=== PATIENT | female | born 1995 | race Caucasian/White ===

== ENCOUNTER 2017-11-05 05:42 | Inpatient (IN) ==
--- OUTSIDE RECORDS SUMMARY | 2017-11-05 05:51 | External Medical Summary | Referral Summary ---
:1995 Author Organization [facility] Address [address] [place] [address] Care Team Providers Name Role Phone [facility] Primary Care Physician Unavailable Encounter [facility] [id number] Date(s): 10/31/16 - 10/31/16 [facility] [address] [place] [address] - us Discharge Diagnosis: Left knee pain Discharge Disposition: 01-Home or Self Care Attending Physician: Rebekah De La Cruz Attending Physician: Provider, Immediate Care Admitting Physician: Provider, Immediate Care Vital Signs Most recent to oldest [Reference Range]: 1 Temperature Oral [35.8-37.3 degC] 36.7 degC (10/31/16 11:29 AM) Peripheral Pulse Rate [60-100 bpm] 89 bpm (10/31/16 11:29 AM) Blood Pressure [90-140/60-90 mmHg] 108/70 mmHg (10/31/16 11:29 AM) SpO2 97 % (10/31/16 11:29 AM) Problem List Condition Effective Dates Status Health Status Informant Acute pain(Confirmed) Active At risk for injury(Confirmed)1 Active At risk of pressure Active sore(Confirmed) Hypoglycemia(Confirmed) Active patient (Confirmed) 03/08/15 - 12/07/15 Resolved (Confirmed) 06/15/14 - 2014 Resolved Severe preeclampsia(Confirmed) Active Tobacco user(Confirmed) Active patient Vaginal delivery(Confirmed) Active 1Problem added automatically by system based on initiation of Risk for Injury Plan of Care Allergies, Adverse Reactions, Alerts No Known Allergies Medications Colace 100 mg oral capsule 100 mg 1 caps, Oral, Daily, as needed for constipation, # 30 caps, 5 Refill(s) Start Date: 12/09/15 Status: Orderedferrous sulfate 325 mg (65 mg elemental iron) oral tablet 325 mg 1 tabs, Oral, Daily, # 30 tabs, 5 Refill(s) Start Date: 12/09/15 Status: Orderedibuprofen 800 mg oral tablet 800 mg 1 tabs, Oral, q8hr, as needed for pain, # 30 tabs, 0 Refill(s) Start Date: 12/09/15 Status: OrderedPrenatal Multivitamins Oral, Daily, 0 Refill(s) Start Date: 05/11/15 Status: OrderedtraMADol 50 mg oral tablet 50 mg 1 tabs, Oral, q12hr, as needed for pain, X 3 days, # 6 tabs, 0 Refill(s) Start Date: 10/31/16 Stop Date: 11/03/16 Status: Ordered Results No data available for this section Immunizations No data available for this section Procedures Procedure Date Related Diagnosis Body Site Appendectomy Social History Social History Type Response Smoking Status Current every day smoker Assessment and Plan Extracted from: Title: Office Visit Note Author: Rebekah De La Cruz Date: 10/31/16 Assessment/Plan 1.Left knee pain Discussed use of therapeutic techniques: PRICEMM therapy (protection, relative rest, ice, compression, elevation, medications, modalities) for symptomatic relief. She needs to establish with PCP f or further work up. Instructed patient on medication, use, common side effects , and administration. Discussed proper OTC medication, including Tylenol or ibuprofen, for symptomatic relief. Instructed pa tient if symptoms worsen or new symptoms arise to seek medical attention here or at the ER. If no improvement of symptoms follow up with PCP in 2-3 days. Patient voiced understanding and agreed with hiwot atment plan. Patient dismissed in stable condition. Ordered: Office Visit Level 3 Est [id number]
[2017-11-05] MEDS ORDERED: MAG-AL + SIM ORAL LIQUID 30ml PO PRN ×2 (05:56→14:16)
[2017-11-05] MEDS ORDERED: LR 1,000 ML IV PRN (05:56)
[2017-11-05] MEDS ORDERED: METHYLERGONOVINE 0.2 MG/ML INJECTION IM PRN (05:56)
[2017-11-05] MEDS ORDERED: ACETAMINOPHEN 500 MG TABLET PO PRN ×2 (05:56→14:16)
[2017-11-05] MEDS ORDERED: OXYTOCIN DRIP 30 UNIT/500 ML ML IV PRN (05:56)
[2017-11-05] MEDS ORDERED: LIDOCAINE 1% (10mg/ml) 2mL INJ PF SDV ID PRN (05:56)
[2017-11-05] MEDS ORDERED: CARBOPROST 250 MCG/ML INJECTION IM PRN (05:56)
[2017-11-05] MEDS ORDERED: CALCIUM CARBONATE Chewable 500mg TABLET PO PRN ×2 (05:56→14:16)
[2017-11-05] MEDS: D5LR 1,000 ML IV PRN ×2 (06:18→06:48)
[2017-11-05 06:35] VITALS: O2SAT 98
[2017-11-05 06:36] VITALS: BMI 43.7
[2017-11-05] MEDS ORDERED: AMPICILLIN 2 GM in NS 100 ML IV ONE (07:00)
--- NOTE | 2017-11-05 07:45 | Anesthesia Preoperative Report ---
Anesthesia Epidural/Spinal Rec - Date and Time Date: 11/05/17 Procedure: Labor Epidural Plan: Epidural - Vital Signs Vital Signs: Temperature 97.5 F 11/05/17 06:27 Pulse Rate 82 11/05/17 06:27 Respiratory Rate 18 11/05/17 06:27 Blood Pressure 102/66 11/05/17 06:27 Pulse Oximetry 98 11/05/17 06:27 NPO since: 0545 /Para: P:1 Heart Rate: 150 Height and Weight: 5' 9" 296 lbs - Medictaions & Allergies Inpatient Medications: Current Medications Acetaminophen (Tylenol) 500 - 1,000 mg PO Q4H PRN PRN Reason: Pain Al Hydroxide/Mg Hydroxide (Maalox Plus) 30 ml PO Q3H PRN PRN Reason: Indigestion Calcium Carbonate (Tums) 500 - 1,000 mg PO Q2H PRN PRN Reason: Indigestion Carboprost Tromethamine (Hemabate) 250 mcg IM O PRN PRN Reason: .Downtime Ampicillin Sodium 1 gm/ Sodium (Chloride) 100 mls @ 200 mls/hr IV Q4H ALPA Dextrose/Lactated Ringer's (Dextrose 5%-Lactated Ringers) 1,000 mls @ 125 mls/ hr IV .Q8H PRN PRN Reason: Labor Last Admin: 11/05/17 06:48 Dose: 125 mls/hr Lactated Ringer's (Lactated Ringers) 1,000 mls @ 999 mls/hr IV .Q1H1M PRN Oxytocin (Pitocin Drip) 30 unit in 500 mls @ 2 mls/hr IV .Q24H PRN; Protocol PRN Reason: Induction/Augmentation Last Admin: 11/05/17 06:48 Dose: 2 mls/hr Lidocaine HCl (Xylocaine-Mpf 1% Vial) 0.2 mg ID O PRN PRN Reason: IV Start Methylergonovine Maleate (Methergine) 0.2 mg IM O PRN Misoprostol (Cytotec) 800 mcg VA ONCE PRN Allergies/Adverse Reactions: Allergies Allergy/AdvReac Type Severity Reaction Status Date / Time No Known Allergies Allergy Verified 11/05/17 07:18 - Home Medications Home Medications: Home Medications Medication Instructions Recorded Confirmed Type No122/Iron/Folic Acid 1 tab PO DAILY 09/10/17 09/10/17 History [ Multi Tablet] - Medical History Gastrointestional: Reports: Gastroesophageal Reflux Disease, Morbid Obesity Other History: Reports: Now (11/01/17) - Surgical History HEENT Surgeries: Reports: Other (wisdom teeth removed 2013) GI Surgery/Treatments: Reports: Appendectomy Reproductive Surgery/Treatment: DENIES: Section Anesthesia Reactions: None Hx Family Anesthesia Reaction: No History of Motion Sickness: No - Social History Smoking Status: Former smoker Packs per day: 1.5 Pack-years: 11 Second Hand Exposure: No Substance Use Type: does not use Alcohol Intake Frequency: does not drink - Pertinent Findings Lab Data: CBC and BMP 11/05/17 06:10 - Physical Exam Respiratory Exam: lungs clear, bilateral breath sounds equal Cardiovascular Exam: regular rate and rhythm - Airway Assessment Mallampati Score: II TMD: 3 Fingerbreadths Neck Extension: fair Overall Assessment: no airway concerns - ASA ASA Score: 3 - Discussion Discussion: Discussed risks/options/alternatives of anesthesia and questions answered. Patient consents. Nursing pain assessment noted. Anesthesia Discussion: family member Attestation Statement: Prior to the delivery of any anesthetic medication, I examined the patient, developed the plan, obtained the patient's consent and discussed the risk and benefits of the procedure with the patient/guardian.
[2017-11-05] MEDS ORDERED: NALOXONE 0.4 MG/ML INJECTION IVP PRN (10:58)
[2017-11-05] MEDS ORDERED: ROPIVACAINE 1% 10MG/ML INJ 200 MG, SUFentanil 50 MCG in NS 100 ML EPI PRN (10:58)
[2017-11-05] MEDS ORDERED: DiphenhydrAMINE 50 MG/ML INJECTION IVP PRN (10:58)
[2017-11-05] MEDS ORDERED: ONDANSETRON 4 MG/2 ML INJECTION IVP PRN (10:58)
[2017-11-05] MEDS ORDERED: AMPICILLIN 1 GM in NS 100 ML IV SCH (11:00)
[2017-11-05] MEDS ORDERED: DiphenhydrAMINE 25 MG CAPSULE PO PRN (14:16)
[2017-11-05] MEDS ORDERED: HYDROCODONE/APAP 5mg/325mg TABLET PO PRN (14:16)
[2017-11-05] MEDS ORDERED: OXYTOCIN DRIP 30 UNIT/500 ML ML IV SCH (14:16)
[2017-11-05] MEDS ORDERED: HYDROCORTISONE 2.5% CREAM 30gm RECTALLY PRN (14:16)
--- NOTE | 2017-11-05 16:46 | Anesthesia Postoperative Note ---
- Date and Time Date: 11/05/17 Time: 16:40 - Status Patient Participated in Evaluation: Patient Participated in Person Vital Signs: Temperature 97.5 F 11/05/17 06:27 Pulse Rate 82 11/05/17 06:27 Respiratory Rate 18 11/05/17 06:27 Blood Pressure 102/66 11/05/17 06:27 Pulse Oximetry 98 11/05/17 06:27 Respiratory Function: Airway Patent, Regular Respirations Cardiovascular Function: Regular Pulse Mental Status: Alert and Oriented Pain Intensity: 0 Hydration: Taking PO Fluids Complications During Recover: None Apparent Post Anesthesia Care Notes: moves lower extremeties without problems - Follow-Up Instructions Instructions: Per Surgeon
[2017-11-05] MEDS: IBUPROFEN 800 MG TABLET PO PRN (18:07)
[2017-11-06] MEDS: IBUPROFEN 800 MG TABLET PO PRN ×3 (01:46→21:04)
--- NOTE | 2017-11-06 12:29 | Progress Note ---
OB PP Progress Note Free Text - Date Date: 11/06/17 - Progress Note Progress Note: vss af no c/o doing well. q&a-krb
[2017-11-06] MEDS: DOCUSATE CALCIUM 240 MG CAPSULE PO SCH ×2 (15:19→23:39)
[2017-11-07 08:52] VITALS: BP 138/99; PULSE 68; RESP 17; TEMP 97.9
== END 2017-11-07 11:34 | disposition home or self-care (01) | DRG 775 ==
LOC: MC 05:42
PROVIDERS: ADMIT Obstetrics & Gynecology; ATTEND Obstetrics & Gynecology